=== PATIENT | female | born 2000 | race Hispanic/Latino ===

== ENCOUNTER 2023-01-21 05:17 | Emergency (ER) | payer OTHER ==
[2023-01-21] MEDS ORDERED: Ibuprofen 200 MG TAB ONE (06:32)
[2023-01-21] MEDS ORDERED: Cyclobenzaprine 10 MG TAB ONE (06:32)
== END 2023-01-21 08:26 | disposition home or self-care (01) ==
LOC: ERS 05:17
DX: S40.012A Contusion of left shoulder, initial encounter (principal); Y04.0XXA Assault by unarmed brawl or fight, initial encounter